=== PATIENT | female | born 1995 | race Caucasian/White ===

== ENCOUNTER 2016-03-15 11:46 | Inpatient (IN) | payer OTHER ==
[2016-03-19] MEDS ORDERED: OXYTOCIN IN LR 500 ML IV PRN (08:04)
[2016-03-19] MEDS ORDERED: LACTATED RINGERS 1,000 ML IV PRN (08:04)
[2016-03-19] MEDS ORDERED: OXYTOCIN IN LR 500 ML IV ONE ×2 (08:04→08:53)
[2016-03-19 08:10] VITALS: BMI 26.6
[2016-03-19] MEDS ORDERED: LACTATED RINGERS 1,000 ML ONE ×2 (08:13→23:21)
[2016-03-19] MEDS ORDERED: IV START KIT ONE (08:13)
[2016-03-19 08:46] LABS: HEMATOCRIT 30.7 % (37.0-47.0); HEMOGLOBIN 9.5 gm/l (12.0-16.0); MEAN CELL VOLUME 79.3 fl (81.0-99.0); MEAN CORPUSCULAR HEMOGLOBIN 24.5 pg (27.0-31.0); MEAN CORPUSCULAR HGB CONC 30.9 g/dl (33.0-37.0); RED CELL DISTRIBUTION WIDTH 16.5 % (11.5-14.5)
[2016-03-19] MEDS ORDERED: OXYTOCIN 10 UNITS/ML VIAL ONE ×2 (08:52→22:12)
[2016-03-19] MEDS ORDERED: LIDOCAINE Viscous 2% 15 ML UDCUP ONE ×2 (08:52→22:12)
[2016-03-19] MEDS ORDERED: LIDOCAINE 1% (PRES FREE) 30 ML VIAL ONE ×2 (08:52→22:12)
[2016-03-19] MEDS ORDERED: MINERAL OIL 25 ML BOT ONE ×2 (08:52→22:12)
[2016-03-19] MEDS ORDERED: PUMP TUBING ONE (08:53)
[2016-03-19] MEDS ORDERED: OXYTOCIN IN LR 334 ML IV PRN (09:02)
[2016-03-19] MEDS: LACTATED RINGERS 1,000 ML IV SCH ×3 (11:50→18:44)
[2016-03-19 12:32] LABS: AMPHETAMINES/METHAMPHETAMINES NEGATIVE (NEGATIVE); COCAINE NEGATIVE (NEGATIVE); MARIJUANA NEGATIVE (NEGATIVE); METHADONE NEGATIVE (NEGATIVE); OPIATES NEGATIVE (NEGATIVE); TRICYCLIC ANTIDEPRESSANTS NEGATIVE (NEGATIVE)
--- NOTE | 2016-03-19 12:38 | PCMAN ---
OB Admission Note - History : 3 Term: 0 : 0 Abortions (S&E): 2 Livin Gestational Age (weeks): 40 Days (#/7): 4 Admit Cervical Dilation:: 3 Admit Cervical Effacement (%):: 50 Admit Station:: -2 Admit Presentaton:: cephalic Membrane Status: Intact Contractions: No Contraction Frequency:: no ctxs Heart Rate:: 145 Status:: reassuring EFW:: 7 Lbs Summary of Course:: Hx abnl Quad and was seen by MFM, had a cfDNA which did not show any aneuploidy. Anemia - did receive an iron infusion on 02/07 but HGB on 03/11/16 was low at 9.7 Elevated protein/creatinine ratio of 0.5 (03/11/16), asymptomatic, nl BP - Labs Blood Type: A (+) positive Hct/Hgb:: 9.7 Rubella Status: Immune GBS Status: Negative Abnormal Labs: Other (abnl Quad, nl cfDNA testing with no aneuploidy) Other Labs:: positive Quad, nl cfDNA - Review of Systems 12 point ROS was negative, denies h/a, blurry vision, RUQ pain or SOB - Physical Exam General: Afebrile Lungs: Clear to Auscultation Bilaterally Cardiovascular: Regular Rate and Rhythm Abdomen: Other (gravid, nontender) Extremities: Full ROM Skin: Normal Color - Problems (1) Term Status: Acute Code: Z34.80 Assessment/Plan: @ 40w4d with proteinuria sent from clinic for IOL. Cervix favorable. GBS negative. FWB reassuring. -will begin with Pitocin augmentation followed by AROM (2) Proteinuria affecting in third trimester Status: Acute Code: O12.13 Assessment/Plan: Had abnl protein/creatinine ratio in clinic of 0.5 on 03/11/16 and was set up for IOL.
[2016-03-19] MEDS ORDERED: FENTANYL/ROPIVACAINE EPIDURAL 250 ML EP ONE (18:16)
[2016-03-19] MEDS ORDERED: EPIDURAL PUMP SET ONE (18:16)
[2016-03-19] MEDS ORDERED: FENTANYL 100 MCG/2 ML VIAL ONE (18:47)
[2016-03-19] MEDS ORDERED: EPIDURAL PROCEDURE TRAY ONE (18:48)
[2016-03-19] MEDS ORDERED: LIDOCAINE 2% (PRES FREE) 5 ML VIAL ONE (18:48)
[2016-03-19] MEDS ORDERED: DOCUSATE SODIUM 100 MG CAPSULE PO PRN (22:30)
[2016-03-19] MEDS ORDERED: MAGNESIUM HYDROXIDE 30 ML UDCUP PO PRN (22:30)
[2016-03-19] MEDS ORDERED: HYDROCODONE/ACETAMINOPHEN 5/325MG TABLET PO PRN (22:30)
[2016-03-19] MEDS ORDERED: BENZOCAINE/MENTHOL 60 APPLIC/BOT TP PRN (22:30)
[2016-03-19] MEDS ORDERED: CALCIUM CARBONATE 500 MG TAB.CHEW PO PRN (22:30)
[2016-03-19] MEDS ORDERED: SENNOSIDES 8.6 MG TABLET PO PRN (22:30)
[2016-03-19] MEDS ORDERED: LANOLIN 50 APPLIC/7G TUBE TP PRN (22:30)
--- NOTE | 2016-03-19 22:39 | PCMDEL ---
Delivery Note - Labor 1st stage (hr/min):: 3hrs 48min 2nd stage (hr/min):: 55 min 3rd stage (hr/min):: 4 min Total (hr/min):: 4hrs 47 min Pushed (hr/min):: 55 min - Delivery Delivery (Date): 03/19/16 Delivery (Time): 22:08 Infant Gender: Male Presentation: Cephalic Position: OA Umbilical Cord: 3 Vessel Delayed Cord Clamping:: < 1-2 min 1 Minute Total: 8 5 Minute Total: 8 Placenta:: complete EBL:: 250ml Perineum:: 2nd degree vaginal/perineal lac Suture:: 3.0 Vicryl Anesthesia/Meds:: Pitocin augmentation and 30 units for active management Length ROM:: 5 hrs 58min Comments:: Vigorous male delivered over 2nd degree vaginal and perineal laceration. Austin was placed on mom's chest. Cord clamped and cut >1-2 min. 30 units of Pitocin given for active management of third stage. Placenta delivered complete with 3 vessel cord. Laceration was repaired in usual fashion with 3.0 Vicryl. EBL 250ml.
[2016-03-19] MEDS ORDERED: METOCLOPRAMIDE HCL 5 MG/ML 2ML VIAL IV PRN (23:36)
[2016-03-19] MEDS ORDERED: SODIUM CHLORIDE 0.9% 500 ML IV PRN (23:36)
[2016-03-19] MEDS ORDERED: DIPHENHYDRAMINE HCL 50 MG/1 ML VIAL IV PRN (23:36)
[2016-03-19] MEDS ORDERED: LACTATED RINGERS 1,000 ML IV SCH (23:36)
[2016-03-19] MEDS ORDERED: EPHEDRINE SULFATE 50 MG/ML 1ML VIAL IV PRN (23:36)
[2016-03-19] MEDS ORDERED: LACTATED RINGERS 500 ML IV PRN (23:36)
[2016-03-19] MEDS ORDERED: ONDANSETRON 4 MG/2ML 2 ML VIAL IV PRN (23:36)
[2016-03-19] MEDS ORDERED: NALBUPHINE HCL 20 MG/ML AMP IV PRN (23:36)
[2016-03-19] MEDS ORDERED: NALOXONE HCL 0.4 MG/ML VIAL IV PRN (23:36)
[2016-03-19] MEDS ORDERED: FENTANYL/ROPIVACAINE EPIDURAL 250 ML EP SCH (23:45)
[2016-03-20 06:50] LABS: HEMATOCRIT 30.3 % (37.0-47.0); HEMOGLOBIN 9.4 gm/l (12.0-16.0)
[2016-03-20] MEDS: IBUPROFEN 800 MG TABLET PO PRN (09:12)
--- NOTE | 2016-03-20 14:05 | PDOC44 ---
- Subjective Day: 1 Patient doing well. States pain controlled with meds. Denies dizziness. Lochia minimal. BF but having some difficulty with latch. Reports Pain Tolerable, Reports , Reports Lochia Light, Reports Tolerating Regular Diet, Denies Nausea, Denies Vomiting - Objective Temp Pulse Resp BP Pulse Ox 97.8 F 81 16 104/65 03/20/16 09:13 03/20/16 09:13 03/20/16 09:13 03/20/16 09:13 Lab Results 03/20/16 06:30 Hgb 9.4 L Hct 30.3 L Current Medications Generic Name Dose Route Start Last Admin Trade Name Freq PRN Reason Stop Dose Admin Acetaminophen/Hydrocodone Bitart 1 - 2 tab 03/19/16 22:30 [place] 5/325 PO Q4H PRN Pain (Moderate) Benzocaine/Menthol 1 applic 03/19/16 22:30 Dermoplast TP PRN PRN Patient Comfort Calcium Carbonate/Glycine 500 - 1,000 mg 03/19/16 22:30 Tums PO BID PRN Indigestion Diphenhydramine HCl 25 - 50 mg 03/19/16 23:36 Benadryl IV Q4H PRN Itching Docusate Sodium 100 mg 03/19/16 22:30 Colace PO DAILY PRN Comfort Emollient Ointment 1 applic 03/19/16 22:30 [id number] TP PRN PRN sore nipples Ephedrine Sulfate 10 mg 03/19/16 23:36 Ephedrine Sulfate IV Q5M PRN Lactated Ringer's 1,000 mls @ 500 mls/hr 03/19/16 23:36 Lactated Ringers IV .Q2H DOUGLAS Ropivacaine/Fentanyl/NS 250 mls @ 0 mls/hr 03/19/16 23:45 03/19/16 19:05 Fentanyl 2 Mcg/Ml + Ropivacaine 0.125% Ep Bag EP 15 mls/hr EPI DOUGLAS Administration Protocol Per Protocol Sodium Chloride 500 mls @ 500 mls/hr 03/19/16 23:36 Sodium Chloride 0.9% IV .Q1H PRN SBP < 90 mmHG Lactated Ringer's 500 mls @ 500 mls/hr 03/19/16 23:36 Lactated Ringers IV .Q1H PRN SBP < 90 mmHG Ibuprofen 800 mg 03/19/16 22:30 03/20/16 09:12 Motrin PO 800 mg Q6H PRN Administration Pain (Mild) Magnesium Hydroxide 30 ml 03/19/16 22:30 Milk Of Magnesia PO BEDTIME PRN Constipation Metoclopramide HCl 10 mg 03/19/16 23:36 Reglan IV Q6H PRN Nalbuphine HCl 1 - 5 mg 03/19/16 23:36 Nubain IV Q4H PRN Itching Naloxone HCl 0.2 - 0.4 mg 03/19/16 23:36 Narcan IV Q5M PRN Ondansetron HCl 4 mg 03/19/16 23:36 Zofran IV Q6H PRN Nausea Senna 17.2 mg 03/19/16 22:30 Senokot PO BEDTIME PRN Comfort Sodium Chloride 10 ml 03/19/16 22:30 Normal Saline 10ml Flush IV PRN PRN IV Flush Sodium Chloride 10 ml 03/20/16 01:00 Normal Saline 10ml Flush IV Q8HR DOUGLAS Sodium Chloride 10 ml 03/19/16 23:36 Normal Saline 10ml Flush IV Q8HR DOUGLAS Sodium Chloride 10 ml 03/19/16 23:36 Normal Saline 10ml Flush IV PRN PRN - Physical Exam General: Afebrile, No Acute Distress Psych/Mental Status: Mood/Affect Appropriate, Bonding Well Neurological: Alert, Normal Speech Lungs: Clear to Auscultation Bilaterally, Normal Air Movement Cardiovascular: Regular Rate and Rhythm, Normal S1, Normal S2 Fundus: Firm, Midline Extremities: Full ROM, No Edema, No Tenderness Skin: Normal Color, Warm, Dry, Intact, No Rash - Problems:Assessment/Plan (1) (normal spontaneous vaginal delivery) Status: Acute Assessment/Plan: PPD#1 s/p Doing well BF support Continue PP care (2) Proteinuria affecting Status: Acute Assessment/Plan: BP has been normal, s/p IOL for proteinuria Disposition: Stable, Anticipate DC Home Tomorrow
[2016-03-21] MEDS: IBUPROFEN 800 MG TABLET PO PRN ×2 (00:10→09:03)
--- NOTE | 2016-03-21 07:42 | PDOC44 ---
- Subjective Day: 2 Patient doing well. BF well. States pain controlled with meds. No issues with voiding/BM. Denies dizziness. Tolerating PO. Reports Pain Tolerable, Reports , Reports Lochia Light, Reports Tolerating Regular Diet, Denies Nausea, Denies Vomiting - Objective Temp Pulse Resp BP Pulse Ox 97.9 F 72 16 127/75 03/20/16 14:01 03/21/16 02:28 03/21/16 02:28 03/21/16 02:28 Current Medications Generic Name Dose Route Start Last Admin Trade Name Freq PRN Reason Stop Dose Admin Acetaminophen/Hydrocodone Bitart 1 - 2 tab 03/19/16 22:30 [place] 5/325 PO Q4H PRN Pain (Moderate) Benzocaine/Menthol 1 applic 03/19/16 22:30 Dermoplast TP PRN PRN Patient Comfort Calcium Carbonate/Glycine 500 - 1,000 mg 03/19/16 22:30 Tums PO BID PRN Indigestion Diphenhydramine HCl 25 - 50 mg 03/19/16 23:36 Benadryl IV Q4H PRN Itching Docusate Sodium 100 mg 03/19/16 22:30 Colace PO DAILY PRN Comfort Emollient Ointment 1 applic 03/19/16 22:30 [id number] TP PRN PRN sore nipples Ephedrine Sulfate 10 mg 03/19/16 23:36 Ephedrine Sulfate IV Q5M PRN Lactated Ringer's 1,000 mls @ 500 mls/hr 03/19/16 23:36 Lactated Ringers IV .Q2H DOUGLAS Ropivacaine/Fentanyl/NS 250 mls @ 0 mls/hr 03/19/16 23:45 03/19/16 19:05 Fentanyl 2 Mcg/Ml + Ropivacaine 0.125% Ep Bag EP 15 mls/hr EPI DOUGLAS Administration Protocol Per Protocol Sodium Chloride 500 mls @ 500 mls/hr 03/19/16 23:36 Sodium Chloride 0.9% IV .Q1H PRN SBP < 90 mmHG Lactated Ringer's 500 mls @ 500 mls/hr 03/19/16 23:36 Lactated Ringers IV .Q1H PRN SBP < 90 mmHG Ibuprofen 800 mg 03/19/16 22:30 03/21/16 00:10 Motrin PO 800 mg Q6H PRN Administration Pain (Mild) Magnesium Hydroxide 30 ml 03/19/16 22:30 Milk Of Magnesia PO BEDTIME PRN Constipation Metoclopramide HCl 10 mg 03/19/16 23:36 Reglan IV Q6H PRN Nalbuphine HCl 1 - 5 mg 03/19/16 23:36 Nubain IV Q4H PRN Itching Naloxone HCl 0.2 - 0.4 mg 03/19/16 23:36 Narcan IV Q5M PRN Ondansetron HCl 4 mg 03/19/16 23:36 Zofran IV Q6H PRN Nausea Senna 17.2 mg 03/19/16 22:30 Senokot PO BEDTIME PRN Comfort Sodium Chloride 10 ml 03/19/16 22:30 Normal Saline 10ml Flush IV PRN PRN IV Flush Sodium Chloride 10 ml 03/20/16 01:00 Normal Saline 10ml Flush IV Q8HR DOUGLAS - Physical Exam General: Afebrile, No Acute Distress Psych/Mental Status: Mood/Affect Appropriate, Bonding Well Neurological: Alert, Normal Gait, Normal Speech Lungs: Clear to Auscultation Bilaterally, Normal Air Movement Cardiovascular: Regular Rate and Rhythm, Normal S1, Normal S2 Breast: Nipples Intact Fundus: Firm, Midline Extremities: Full ROM, No Edema, No Tenderness Skin: Normal Color, Warm, Dry, Intact, No Rash - Problems:Assessment/Plan (1) (normal spontaneous vaginal delivery) Status: Acute Assessment/Plan: PPD#2 s/p Doing well BF support Stable for d/c, follow up with PCP in 6 weeks (2) Proteinuria affecting Status: Acute Assessment/Plan: BP has been normal, s/p IOL for proteinuria Disposition: Stable, Anticipate DC to Home
[2016-03-21 08:52] VITALS: BP 119/70
== END 2016-03-21 10:16 | disposition home or self-care (01) | DRG 775 ==
LOC: EDSTATUS 15:28 → FBC 03-19 06:54
PROVIDERS: ADMIT Family Medicine; ATTEND Family Medicine
PROC: 0KQM0ZZ Repair Perineum Muscle, Open Approach (ICD-10-PCS; principal; 2016-03-19)
PROC: 3E033VJ Introduction of Other Hormone into Peripheral Vein, Percutaneous Approach (ICD-10-PCS; 2016-03-19)
PROC: 10E0XZZ Delivery of Products of Conception, External Approach (ICD-10-PCS; 2016-03-19)
DX: O48.0 Post-term pregnancy (principal); O70.1 Second degree perineal laceration during delivery; O14.94 Unspecified pre-eclampsia, complicating childbirth; Z37.0 Single live birth; Z3A.40 40 weeks gestation of pregnancy

== ENCOUNTER 2016-03-16 20:27 | Outpatient (CLI) | payer OTHER ==
[2016-03-16 21:01] VITALS: BMI 28.4
== END 2016-03-16 23:08 | disposition home or self-care (01) ==
LOC: FBCOUT 20:27 → FBC 20:27 → FBCOUT 23:08
PROVIDERS: ATTEND Family Medicine
DX: O26.899 Other specified pregnancy related conditions, unspecified trimester (principal); Z3A.00 Weeks of gestation of pregnancy not specified

== ENCOUNTER 2016-03-18 16:33 | Outpatient (CLI) | payer OTHER ==
[2016-03-18 17:16] LABS: CREATININE,RANDOM URINE 84 mg/dL
[2016-03-18 17:25] LABS: ABSOLUTE NEUTROPHIL COUNT 6.2 K/mm3 (1.8-7.7); BASO % 0.2 % (0.2-1.0); EOS # 0.1 (0.0-0.5); EOS % 1.5 % (0.9-2.9); HEMATOCRIT 29.3 % (37.0-47.0); HEMOGLOBIN 9.2 gm/l (12.0-16.0); IMM NEUT # 0.1 K/mm3 (0-0.2); IMM NEUT% 0.5 % (0-1); LYMPH # 2.5 (1.0-4.8); LYMPH % 26.8 % (15-45); MEAN CELL VOLUME 79.4 fl (81.0-99.0); MEAN CORPUSCULAR HEMOGLOBIN 24.9 pg (27.0-31.0); MEAN CORPUSCULAR HGB CONC 31.4 g/dl (33.0-37.0); MEAN PLATELET VOLUME 13.7 fl (7.4-10.4); MONO # 0.4 (0.0-0.8); MONO % 4.1 % (4-12); NEUT % 66.9 % (43-75); PLATELET COUNT 202 K/mm3 (130-400); RED CELL DISTRIBUTION WIDTH 16.2 % (11.5-14.5)
[2016-03-18 17:37] LABS: ALBUMIN 3.1 gm/dL (3.5-5.7); CALCIUM 8.6 mg/dL (8.6-10.3); URIC ACID 5.9 mg/dL (2.3-7.6)
[2016-03-18 17:46] LABS: TOTAL CELLS COUNTED 100
[2016-03-18 18:03] LABS: ANISOCYTOSIS 1+; BAND 1 % (0-10); BASOPHIL 0 % (0-1); EOSINOPHIL 2 % (1-3); LYMPHOCYTE 33 % (15-45); MONOCYTE 2 % (4-12); NEUTROPHILS 62 % (43-75); PLATELET ESTIMATE NORMAL (NORMAL)
== END 2016-03-18 17:56 | disposition home or self-care (01) ==
LOC: FBC 16:33 → FBCOUT 16:33
PROVIDERS: ATTEND Family Medicine
DX: O26.899 Other specified pregnancy related conditions, unspecified trimester (principal); Z3A.00 Weeks of gestation of pregnancy not specified

== ENCOUNTER 2016-03-25 10:00 | Outpatient (CLI) | payer OTHER | END 2016-03-25 10:01 | disposition home or self-care (01) | LOC: BABIESSH 10:00 | PROVIDERS: ATTEND Family Medicine | DX: Z39.1 Encounter for care and examination of lactating mother (principal) ==